=== PATIENT | female | born 1985 | race African-American/Black ===

== ENCOUNTER 2016-08-09 17:02 | Emergency (ER) | payer SELFPAY ==
[~2016-08-09] VITALS: Ht 157.5 cm; Wt 73.8 kg
[2016-08-09] MEDS ORDERED: ONDANSETRON HCL 4MG/2ML VIAL IV STA (23:36)
[2016-08-09] MEDS ORDERED: SODIUM CHLORIDE 0.9% 1,000 ML IV ONE (23:36)
[2016-08-09] MEDS ORDERED: FAMOTIDINE 20MG/2ML VIAL IV ONE (23:45)
[2016-08-09] MEDS ORDERED: ACETAMINOPHEN 500MG TABLET PO ONE (23:45)
[2016-08-10 00:27] LABS: CLARITY URINE CLEAR (CLEAR); COLOR URINE YELLOW (YELLOW); GLUCOSE URINE NEGATIVE (NEGATIVE); KETONES URINE 1+ (NEGATIVE); LEUKOCYTE ESTERASE URINE 2+ (NEGATIVE); NITRITE URINE NEGATIVE (NEGATIVE); OCCULT BLOOD URINE NEGATIVE (NEGATIVE); PROTEIN URINE NEGATIVE (NEGATIVE); SPECIFIC GRAVITY URINE 1.007 (1.005-1.030); UROBILINOGEN URINE 0.2 E.U./dL (0.2-1.0)
[2016-08-10 01:04] LABS: BASOPHILS % 0.9 % (0.0-2.0); EOSINOPHILS % 2.3 % (0.0-5.0); HEMATOCRIT. 41.5 % (36.0-48.0); HEMOGLOBIN. 14.6 g/dL (12.0-16.0); LYMPHOCYTES % 31.6 % (20.0-50.0); MEAN CORPUSCULAR HEMOGLOBIN 31.6 pg (28.0-32.0); MEAN CORPUSCULAR VOLUME 90.1 fL (81.0-99.0); MEAN PLATELET VOLUME 8.1 fl (7.4-10.4); NEUTROPHILS % 56.2 % (40.0-76.0); PLATELET 323 x1000/uL (130-400); RED BLOOD CELL COUNT 4.61 mill/uL (4.2-5.4); RED CELL DISTRIBUTION WIDTH 13.3 % (11.6-14.6)
[2016-08-10 01:09] LABS: CHLORIDE 107 mEq/L (98-107)
[2016-08-10 01:25] LABS: CARBON DIOXIDE 23 mEq/L (21-32)
[2016-08-10 01:32] LABS: B-HCG QUANTITATIVE 51456 mIU/mL (<3)
[2016-08-10] MEDS ORDERED: CEFTRIAXONE 1 G PREMIX 50 ML IV NR (02:00)
[2016-08-10 03:10] VITALS: BP 120/74
== END 2016-08-10 04:15 | disposition home or self-care (01) ==
LOC: ER 22:19
DX: O23.41 Unspecified infection of urinary tract in pregnancy, first trimester (principal); K21.9 Gastro-esophageal reflux disease without esophagitis; Z3A.00 Weeks of gestation of pregnancy not specified
CPT/HCPCS: 36415; 80053; 81001; 81025; 83690; 84702; 85025; 96361; 96374; 96375; 99284; J0696; J2405; J3490; J7030; Z7610